=== PATIENT | male | born 1995 | race African-American/Black ===

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

== ENCOUNTER 2018-06-16 21:11 | Observation (INO) ==
[2018-06-16] MEDS ORDERED: Ketorolac Inj 30 MG/ML (IVP) Vial IV.PUSH ONE (21:46)
[2018-06-16] MEDS ORDERED: Sod Chloride 0.9% Inj 1,000 ML IV.SIG SCH (22:00)
[2018-06-16] MEDS: Morphine Inj 4 MG/ML Vial IV.PUSH PRN (22:12)
[2018-06-16] MEDS: Sod Chloride 0.9% Inj 1,000 ML IV.SIG SCH ×2 (22:13→22:45)
[2018-06-16 22:14] LABS: Hematocrit 25.2 % (39.0-51.0); Hemoglobin 8.5 gm/dL (13.0-17.0); Mean Corpuscular HGB Conc 33.9 % (32.0-36.0); Mean Corpuscular Hemoglobin 25.7 pg (27.0-34.0); Mean Platelet Volume 8.5 fL (7.0-11.0); Platelet Count 395 th/mm3 (150-450); Red Blood Count 3.31 mil/mm3 (4.50-5.90); Red Cell Distribution Width 23.3 % (11.6-17.2); White Blood Count 25.2 th/mm3 (4.0-11.0)
[2018-06-16 22:21] LABS: Chloride 107 meq/L (98-107); Potassium 3.7 meq/L (3.5-5.1); Sodium 140 meq/L (136-145)
[2018-06-16 22:25] LABS: Calcium 8.5 mg/dL (8.5-10.1)
--- NOTE | 2018-06-16 22:25 | ED ---
HPI General Chief complaint: Sickle Cell Stated complaint: Sickle cell pain Time Seen by Provider: 06/16/18 21:38 Source: patient and old records reviewed Mode of arrival: ambulatory Limitations: no limitations History of Present Illness Onset (ago): day(s) (06/13) Location: left, right, upper extremity and lower extremity Radiation: non-radiation Severity: severe Severity scale (1-10): 10 Quality: aching Pain Consistency: constant Relieving factors: other (Percocet) Exacerbating factors: none Associated symptoms: Reports denies other symptoms; Denies chest pain and fever/ chills Treatments prior to arrival: Reports other (Percocet until he ran out of it. He has been taking Tylenol since then.) Related Data Previous Rx's Medication Instructions Recorded oxycodone-acetaminophen [Percocet] 1 tab PO Q4-6H PRN #15 tab 06/13/18 Allergies Allergy/AdvReac Type Severity Reaction Status Date / Time No Known Allergies Allergy Verified 06/16/18 21:13 Review of Systems ROS: all other systems reviewed are negative [facility] Medical History Medical History Sickle cell anemia (Acute) Social History Social History Substance History: No History of Abuse Second Hand Smoke Exposure: No Smoking Status: Never smoker How Often Do You Have a Drink Containing Alcohol: Never Recent Travel in [facility] within the Last 8 Weeks: No Recent Out of Country Travel within the Last 8 Weeks: No Immunization History Tetanus Immunization: Unsure Exam Const General: cooperative, healthy appearing, comfortable, no acute distress and well developed Orientation: alert, awake and oriented x3 HENMT Head: normal to inspection, normocephalic and atraumatic Eyes Alignment and Position: alignment normal and position abnormal Conjunctivae: conjunctivae normal Sclera: scleral abnormality (Icterus) bilaterally EOM: EOM intact bilaterally Neck Neck: normal visual inspection and full ROM Chest Chest: normal inspection of the chest Resp Effort & Inspection: normal respiratory effort and able to speak in complete sentences Auscultation: clear to auscultation bilaterally Cardio Rate: tachycardic Rhythm: regular rhythm GI Inspection: normal to inspection Palpation: soft Back/Spine/Pelvis Cervical Spine: cervical ROM normal Thoracic/Lumbar Spine: thoraco-lumbar ROM normal Skin General: no rashes or lesions noted, turgor normal and dry skin Neuro General: alert, awake, oriented x3, moves all extremities and CN's II-XI intact bilaterally Extrem General: normal to inspection and full ROM Psych Appearance: grossly normal Mental Status: mental status grossly normal Speech and Movement: speech and movement normal Mood: congruent mood Affect: normal affect Attitude: cooperative Thought Process: normal Thought Content: normal Judgment: judgment good Course Initial Documented Vital Signs Temperature 98.2 F 06/16/18 21:13 Pulse Rate 108 H 06/16/18 21:13 Respiratory Rate 18 06/16/18 21:13 Blood Pressure 131/74 06/16/18 21:13 Pulse Oximetry 97 06/16/18 21:13 Last Documented Vital Signs Temperature 100.9 F H 06/17/18 08:00 Pulse Rate 99 H 06/17/18 08:00 Respiratory Rate 18 06/17/18 10:57 Blood Pressure 138/81 06/17/18 08:00 Pulse Oximetry 99 06/17/18 08:00 Sign Out Sign Out Data: Patient Sign Out occurred on 06/17/18 at 00:56. Patient's care was discussed, and care was transferred from Gabrielle Diaz to Yazmin Hendricks MD. Sign Out Comment: This patient is being signed out at 11 PM pending his reticulocyte count. He needs to be admitted to the hospital for sickle cell crisis. This is his third visit since 06/13 for same. Last updated by Gabrielle Diaz at 06/16/18 23:05 Post-Handoff Eval: Accepted in sign out Medical Decision Making MDM Narrative Medical decision making narrative: This is a 22-year-old patient with sickle cell anemia who presents with sickle cell crisis. This is his third visit since 06/13. I recommended admission. He initially agreed but now states that he is not going to stay for admission. I have ordered 2 L of fluid and IV morphine for him. He will need to sign out AMA. 11 PM The patient now states that he will be admitted if I am not going to give him a prescription for narcotics. Patient accepted in sign out Patient agrees to observation admission as pain is not adequately controlled as an outpatient. Reticulocyte elevated. Patient's case discussed with [facility] medicine service for sickle cell vaso-occlusive crisis. Medical Screen Exam Complete: Yes Emergency Medical Condition: Yes Differential Diagnosis Differential Diagnosis: My differential diagnosis of sickle cell disease includes but is not limited to vaso-occlusive crisis, acute chest syndrome, occult infection, electrolyte disturbance, drug-seeking behavior. Medical Records Medical records reviewed: Yes I reviewed the patient's medical records. She was seen here on 06/13 for same. Admission was recommended but refused. He was seen here again last night. Admission was again recommended but refused. He was given a prescription for 15 Percocet on 06/13. Lab Data Lab results reviewed: Yes I reviewed the patient's lab results. Result diagrams: 06/17/18 06:30 06/17/18 06:30 Lab Results 06/16/18 06/16/18 06/17/18 Range/Units 22:00 22:00 06:30 CBC w Diff Slide review pending Slide review pending WBC 25.2 H 25.3 H (4.0-11.0) th/mm3 RBC 3.31 L 3.30 L (4.50-5.90) mil/mm3 Hgb 8.5 L 8.3 L (13.0-17.0) gm/dL Hct 25.2 L 25.3 L (39.0-51.0) % MCV 76.0 L 76.8 L (80.0-100.0) fL MCH 25.7 L 25.2 L (27.0-34.0) pg MCHC 33.9 32.8 (32.0-36.0) % RDW 23.3 H 23.0 H (11.6-17.2) % Plt Count 395 405 (150-450) th/mm3 MPV 8.5 8.3 (7.0-11.0) fL Neut % (Auto) 64.9 (16.0-70.0) % Lymph % (Auto) 13.3 (9.0-44.0) % Mercer % (Auto) 14.1 H (0.0-8.0) % Eos % (Auto) 4.0 (0.0-4.0) % Baso % (Auto) 3.7 H (0.0-2.0) % Neut # (Auto) 16.4 H (1.8-7.7) th/mm3 Lymph # (Auto) 3.4 (1.0-4.8) th/mm3 Mercer # (Auto) 3.6 H (0.0-0.9) th/mm3 Eos # (Auto) 1.0 H (0.0-0.4) th/mm3 Baso # (Auto) 0.9 H (0.0-0.2) th/mm3 WBC Differential Manual diff final . Diff Scan Auto diff confirmed Seg Neuts % (Manual) 84 H (16-70) % Band Neuts % (Manual) 2 (0-6) % Lymphocytes % (Manual) 8 L (9-44) % Monocytes % (Manual) 4 (0-8) % Eosinophils % (Manual) 2 (0-4) % Abs Neuts (Manual) 21.7 H (1.8-7.7) th/mm3 Differential Comment . . Platelet Estimate Normal Normal (Normal) Platelet Morphology Normal Normal (Normal) Sickle Cells 2+ H (None) Target Cells 2+ H (None) Ovalocytes 1+ H (None) Retic Count 11.6 H (0.4-3.0) % Absolute Retic 397.9 H (20.0-150.0) mil/L Sodium 140 (136-145) meq/L Potassium 3.7 (3.5-5.1) meq/L Chloride 107 (98-107) meq/L Carbon Dioxide 24.7 (21.0-32.0) meq/L Anion Gap 8 (5-15) meq/L BUN 11 (7-18) mg/dL Creatinine 0.77 (0.60-1.30) mg/dL Estimated GFR Greater than 89 (>89) mL/min Random Glucose 120 H (74-106) mg/dL Calcium 8.5 (8.5-10.1) mg/dL Total Bilirubin 2.1 H (0.2-1.0) mg/dL Direct Bilirubin (0.0-0.2) mg/dL Indirect Bilirubin (0.0-0.8) mg/dL AST 41 H (15-39) U/L ALT 14 (9-52) U/L Alkaline Phosphatase 119 H (45-117) U/L Lactate Dehydrogenase (87-241) U/L Total Protein 8.6 H (6.4-8.2) g/dL Albumin 3.7 (3.4-5.0) g/dL 06/17/18 06/17/18 06/17/18 Range/Units 06:30 06:30 06:30 CBC w Diff WBC (4.0-11.0) th/mm3 RBC (4.50-5.90) mil/mm3 Hgb (13.0-17.0) gm/dL Hct (39.0-51.0) % MCV (80.0-100.0) fL MCH (27.0-34.0) pg MCHC (32.0-36.0) % RDW (11.6-17.2) % Plt Count (150-450) th/mm3 MPV (7.0-11.0) fL Neut % (Auto) (16.0-70.0) % Lymph % (Auto) (9.0-44.0) % Mercer % (Auto) (0.0-8.0) % Eos % (Auto) (0.0-4.0) % Baso % (Auto) (0.0-2.0) % Neut # (Auto) (1.8-7.7) th/mm3 Lymph # (Auto) (1.0-4.8) th/mm3 Mercer # (Auto) (0.0-0.9) th/mm3 Eos # (Auto) (0.0-0.4) th/mm3 Baso # (Auto) (0.0-0.2) th/mm3 WBC Differential Diff Scan Seg Neuts % (Manual) (16-70) % Band Neuts % (Manual) (0-6) % Lymphocytes % (Manual) (9-44) % Monocytes % (Manual) (0-8) % Eosinophils % (Manual) (0-4) % Abs Neuts (Manual) (1.8-7.7) th/mm3 Differential Comment Platelet Estimate (Normal) Platelet Morphology (Normal) Sickle Cells (None) Target Cells (None) Ovalocytes (None) Retic Count 10.6 H (0.4-3.0) % Absolute Retic 347.3 H (20.0-150.0) mil/L Sodium 137 (136-145) meq/L Potassium 3.8 (3.5-5.1) meq/L Chloride 106 (98-107) meq/L Carbon Dioxide 22.5 (21.0-32.0) meq/L Anion Gap 9 (5-15) meq/L BUN 9 (7-18) mg/dL Creatinine 0.72 (0.60-1.30) mg/dL Estimated GFR Greater than 89 (>89) mL/min Random Glucose 96 (74-106) mg/dL Calcium 8.4 L (8.5-10.1) mg/dL Total Bilirubin (0.2-1.0) mg/dL Direct Bilirubin (0.0-0.2) mg/dL Indirect Bilirubin (0.0-0.8) mg/dL AST (15-39) U/L ALT (9-52) U/L Alkaline Phosphatase (45-117) U/L Lactate Dehydrogenase 503 H (87-241) U/L Total Protein (6.4-8.2) g/dL Albumin (3.4-5.0) g/dL 06/17/18 Range/Units 06:30 CBC w Diff WBC (4.0-11.0) th/mm3 RBC (4.50-5.90) mil/mm3 Hgb (13.0-17.0) gm/dL Hct (39.0-51.0) % MCV (80.0-100.0) fL MCH (27.0-34.0) pg MCHC (32.0-36.0) % RDW (11.6-17.2) % Plt Count (150-450) th/mm3 MPV (7.0-11.0) fL Neut % (Auto) (16.0-70.0) % Lymph % (Auto) (9.0-44.0) % Mercer % (Auto) (0.0-8.0) % Eos % (Auto) (0.0-4.0) % Baso % (Auto) (0.0-2.0) % Neut # (Auto) (1.8-7.7) th/mm3 Lymph # (Auto) (1.0-4.8) th/mm3 Mercer # (Auto) (0.0-0.9) th/mm3 Eos # (Auto) (0.0-0.4) th/mm3 Baso # (Auto) (0.0-0.2) th/mm3 WBC Differential Diff Scan Seg Neuts % (Manual) (16-70) % Band Neuts % (Manual) (0-6) % Lymphocytes % (Manual) (9-44) % Monocytes % (Manual) (0-8) % Eosinophils % (Manual) (0-4) % Abs Neuts (Manual) (1.8-7.7) th/mm3 Differential Comment Platelet Estimate (Normal) Platelet Morphology (Normal) Sickle Cells (None) Target Cells (None) Ovalocytes (None) Retic Count (0.4-3.0) % Absolute Retic (20.0-150.0) mil/L Sodium (136-145) meq/L Potassium (3.5-5.1) meq/L Chloride (98-107) meq/L Carbon Dioxide (21.0-32.0) meq/L Anion Gap (5-15) meq/L BUN (7-18) mg/dL Creatinine (0.60-1.30) mg/dL Estimated GFR (>89) mL/min Random Glucose (74-106) mg/dL Calcium (8.5-10.1) mg/dL Total Bilirubin 1.7 H (0.2-1.0) mg/dL Direct Bilirubin 0.5 H (0.0-0.2) mg/dL Indirect Bilirubin 1.2 H (0.0-0.8) mg/dL AST 45 H (15-39) U/L ALT 14 (9-52) U/L Alkaline Phosphatase 114 (45-117) U/L Lactate Dehydrogenase (87-241) U/L Total Protein 8.1 (6.4-8.2) g/dL Albumin 3.4 (3.4-5.0) g/dL Discharge Plan Discharge Disposition Patient Disposition: Sign Out(ED Internal Use Only) Discharge Order Discharge Orders: ED Use Only Admit Order (Routine); Ordered 06/17/18 Ordered By: Yazmin Hendricks Discharge Details Diagnosis: Sickle cell anemia Physicians Team ED Provider: Yazmin Hendricks Primary Care Provider: Primary Care Carolyn Marcial Attending Provider: Pao Rogers Status ED Status: Left Department Discharge Information Discharge Date/Time: 06/17/18 01:15
[2018-06-16 22:26] LABS: Albumin 3.7 g/dL (3.4-5.0); Anion Gap 8 meq/L (5-15); Blood Urea Nitrogen 11 mg/dL (7-18); Carbon Dioxide 24.7 meq/L (21.0-32.0); Glucose,Random 120 mg/dL (74-106)
[2018-06-16 22:29] LABS: Alanine Aminotransferase 14 U/L (9-52); Aspartate Aminotransferase 41 U/L (15-39)
[2018-06-16 22:30] LABS: Eosinophils 2 % (0-4); Glomerular Filtration Rate Greater Than 89 mL/min (>89); Lymphocytes 8 % (9-44); Monocytes 4 % (0-8)
[2018-06-16 22:31] LABS: Ovalocytes 1+; Platelet Estimate Normal (Normal); Platelet Morphology Normal (Normal); Sickle Cells 2+; Target Cells 2+; Total Protein 8.6 g/dL (6.4-8.2)
[2018-06-16 22:32] LABS: Alkaline Phosphatase 119 U/L (45-117)
[2018-06-16 23:42] LABS: Reticulocyte Percent 11.6 % (0.4-3.0)
[2018-06-17] MEDS ORDERED: Morphine Inj 4 MG/ML Vial IV.PUSH PRN ×2 (00:21→05:26)
[2018-06-17] MEDS ORDERED: Bisacodyl 10 MG Supp RECTAL PRN (00:22)
[2018-06-17] MEDS ORDERED: Acetaminophen 325 MG Tablet PO PRN (00:22)
[2018-06-17] MEDS: Sod Chloride 0.9% Inj 1,000 ML IV.CONT SCH ×2 (01:29→10:58)
[2018-06-17] MEDS: Morphine Inj 4 MG/ML Vial IV.PUSH PRN ×2 (02:58→04:04)
[2018-06-17] MEDS ORDERED: HYDROmorphone PF Inj 2 MG/ML Vial IV.PUSH ONE (05:24)
[2018-06-17 06:56] LABS: Baso # (Auto) 0.9 th/mm3 (0.0-0.2); Baso % (Auto) 3.7 % (0.0-2.0); Hematocrit 25.3 % (39.0-51.0); Hemoglobin 8.3 gm/dL (13.0-17.0); Lymph # (Auto) 3.4 th/mm3 (1.0-4.8); Lymph % (Auto) 13.3 % (9.0-44.0); Mean Corpuscular HGB Conc 32.8 % (32.0-36.0); Mean Corpuscular Hemoglobin 25.2 pg (27.0-34.0); Mean Corpuscular Volume 76.8 fL (80.0-100.0); Mean Platelet Volume 8.3 fL (7.0-11.0); Mono # (Auto) 3.6 th/mm3 (0.0-0.9); Mono % (Auto) 14.1 % (0.0-8.0); Neut # (Auto) 16.4 th/mm3 (1.8-7.7); Neut % (Auto) 64.9 % (16.0-70.0); Platelet Count 405 th/mm3 (150-450); White Blood Count 25.3 th/mm3 (4.0-11.0)
[2018-06-17] MEDS: oxyCODONE/Acetaminophen 10/325 Tablet PO PRN ×4 (06:59→19:30)
[2018-06-17 07:00] LABS: Chloride 106 meq/L (98-107); Potassium 3.8 meq/L (3.5-5.1); Sodium 137 meq/L (136-145)
[2018-06-17 07:03] LABS: Anion Gap 9 meq/L (5-15); Calcium 8.4 mg/dL (8.5-10.1); Carbon Dioxide 22.5 meq/L (21.0-32.0); Glucose,Random 96 mg/dL (74-106)
[2018-06-17 07:04] LABS: Blood Urea Nitrogen 9 mg/dL (7-18)
[2018-06-17 07:07] LABS: Glomerular Filtration Rate Greater Than 89 mL/min (>89)
[2018-06-17 07:26] LABS: Platelet Estimate Normal (Normal); Platelet Morphology Normal (Normal)
[2018-06-17 07:40] LABS: Albumin 3.4 g/dL (3.4-5.0)
[2018-06-17 07:45] LABS: Total Protein 8.1 g/dL (6.4-8.2)
[2018-06-17] MEDS ORDERED: Senna/Docusate Sodium 8.6/50 MG Tablet PO SCH (09:00)
[2018-06-17 09:58] LABS: Reticulocyte Percent 10.6 % (0.4-3.0)
[2018-06-17] MEDS ORDERED: Folic Acid 1 MG Tablet PO SCH (11:45)
--- NOTE | 2018-06-17 11:48 | P.HPIM ---
History of Present Illness Primary Care Physician: No Primary Care Physician Chief Complaint: Leg and knee pain History of Present Illness: 22-year-old male with known history of sickle generalized pain mainly in his legs and knees. Patient has been to the emergency department 3 times in the last 4 days because of intractable pain. Workup was done which did indicate patient having sickle cell crisis at this time. The patient does not have a local sales teacher. Patient states that when he was in [place] he was treated with folic acid and penicillin. He does live in the area, does not have a primary medical doctor at this time. He states that he lost his insurance and prior medical doctor when he turned 21. He has never been evaluated by sales teacher in the area. By electronic medical records it would appears that the patient has come to the hospital approximately 5 times in the last 3 years. Apparently the last 3 times he was trying to get relief with medications prescribed by the ER physician but which is unsuccessful in doing so. It was recommended by ER physician the patient be admitted for further evaluation and management. Patient denies any headache, visual disturbances, chest pain, shortness of breath, hemoptysis, abdominal pain , nausea, vomiting. Review of Systems Review of Systems: all other systems reviewed are negative Musculoskeletal: Reports arthralgias PMFSH Medical History Medical History Sickle cell anemia (Acute) Family History Family History Mother History of sickle cell trait Father History of sickle cell trait Social History Social History Substance History: No History of Abuse Second Hand Smoke Exposure: No Smoking Status: Never smoker How Often Do You Have a Drink Containing Alcohol: Never Recent Travel in [place] within the Last 8 Weeks: No Recent Out of Country Travel within the Last 8 Weeks: No Immunization History Tetanus Immunization: Unsure Medications and Allergies Allergies Allergy/AdvReac Type Severity Reaction Status Date / Time No Known Allergies Allergy Verified 06/16/18 21:13 Active Medications: Active Medications Acetaminophen (Tylenol) 650 mg PO Q4H PRN PRN Reason: Temp > 100.4 Al Hydroxide/Mg Hydroxide (Milk Of Magnesia Liq) 30 ml PO Q12H PRN PRN Reason: Mild Constipation Bisacodyl (Dulcolax Supp) 10 mg RECTAL DAILY PRN PRN Reason: SEVERE CONSITIPATION Folic Acid (Folic Acid) 1 mg PO DAILY [facility] Sodium Chloride (Ns Inj) 1,000 mls @ 150 mls/hr IV.CONT .Q6H40M [facility] Last Admin: 06/17/18 10:58 Dose: 150 mls/hr Lactulose (Lactulose Liq) 30 ml PO DAILY PRN PRN Reason: SEVERE CONSITIPATION Morphine Sulfate (Morphine Inj) 4 mg IV.PUSH Q4H PRN PRN Reason: BREAKTHROUGH PAIN Last Admin: 06/17/18 10:05 Dose: 4 mg Ondansetron HCl (Zofran Inj) 4 mg IV.PUSH Q6H PRN PRN Reason: NAUSEA OR VOMITING Oxycodone/Acetaminophen (Percocet 10/325 Mg) 1 tab PO Q4H PRN PRN Reason: Acute Pain Last Admin: 06/17/18 11:18 Dose: 1 tab Senna/Docusate Sodium (Leah-Colace) 1 tab PO BID [facility] Last Admin: 06/17/18 08:54 Dose: Not Given Sennosides (Senokot) 17.2 mg PO Q12H PRN PRN Reason: Moderate Constipation Sodium Chloride (Ns Flush) 2 ml IV.FLUSH BID [facility] Last Admin: 06/17/18 08:53 Dose: Not Given Sodium Chloride (Ns Flush) 2 ml IV.FLUSH PRN PRN PRN Reason: FLUSH AFTER USING IV ACCESS Last Admin: 06/17/18 05:44 Dose: 2 ml Physical Exam Vital signs: Last Vital Signs Temp 100.9 F H 06/17/18 08:00 Pulse 99 H 06/17/18 08:00 Resp 18 06/17/18 10:57 BP 138/81 06/17/18 08:00 Pulse Ox 99 06/17/18 08:00 Intake & Output 06/15/18 06/16/18 06/17/18 06/18/18 06:59 06:59 06:59 06:59 Intake Total 3090 / 3090 1000 / 1000 Output Total 1350 / 1350 Balance 1740 / 1740 1000 / 1000 Weight 63.9 kg Narrative: GENERAL: Well-developed, well-nourished, in no acute distress. alert and orientated HEENT: Head is normocephalic without any lesions or masses noted. Facial features are symmetric. Eyes: Pupils equal round reactive to light. Extraocular muscles are intact. Conjunctivae were clear. Oropharyngeal: Pharynx without any erythema edema. Tongue is midline without deviation. Buccal mucosa is moist without any masses or lesions NECK: Supple without any masses. Trachea midline no deviation. No JVD, no bruits are appreciated CARDIAC: Regular rhythm, regular rate. S1/S2 are heard. No murmurs gallops or rubs. LUNGS: Clear to auscultation bilaterally. No wheeze, rhonchi or rales. No use of accessory muscles on inspiration or expiration. ABDOMEN: Soft, nontender. Nondistended. Bowel sounds heard in all 4 quadrants. No organomegaly or masses. Negative rebound, negative guarding EXTREMITIES: No edema, pulses are equal bilaterally. No cyanosis or clubbing NEUROLOGY: Mood and affect appear appropriate. Cranial nerves II through XII grossly intact. Muscle strength 5/5 in upper and lower extremities bilaterally. Deep tendon reflexes are 2+ in upper and lower extremities bilaterally. MUSCULOSKELETAL: Patient has no obvious tenderness noted in upper extremities, chest, abdomen. However when reaching to palpate his lower extremities he started groaning in pain prior to me touching his skin. Results Labs CBC & Chem 7: 06/17/18 06:30 06/17/18 06:30 Caprini VTE Risk Assessment Caprini VTE Risk Assessment: Moderate/High Risk (score >= 2) Caprini Risk Assessment Model: Point Value = 1 Point Value = 2 Point Value = 3 Point Value = 5 Age 41-60 Minor surgery BMI > 25 kg/m2 Swollen legs Varicose veins or History of unexplained or recurrent spontaneous Oral contraceptives or hormone replacement Sepsis (< 1 month) Serious lung disease, including pneumonia (< 1 month) Abnormal pulmonary function Acute myocardial infarction Congestive heart failure (< 1 month) History of inflammatory bowel disease Medical patient at bed rest Age 61-74 Arthroscopic surgery Major open surgery (> 45 min) Laparoscopic surgery (> 45 min) Malignancy Confined to bed (> 72 hours) Immobilizing plaster cast Central venous access Age >= 75 History of VTE Family history of VTE Factor V Leiden Prothrombin [id number] Lupus anticoagulant Anticardiolipin antibodies Elevated serum homocysteine Heparin-induced thrombocytopenia Other congenital or acquired thrombophilia Stroke (< 1 month) Elective arthroplasty Hip, pelvis, or leg fracture Acute spinal cord injury (< 1 month) Prophylaxis Regimen: Total Risk Factor Score Risk Level Prophylaxis Regimen 0-1 Low Early ambulation 2 Moderate Order ONE of the following: *Sequential Compression Device (SCD) *Heparin 5000 units SQ BID 3-4 Higher Order ONE of the following medications: *Heparin 5000 units SQ TID *Enoxaparin/Lovenox 40 mg SQ daily (WT < 150 kg, CrCl > 30 mL/min) *Enoxaparin/Lovenox 30 mg SQ daily (WT < 150 kg, CrCl > 10-29 mL/min) *Enoxaparin/Lovenox 30 mg SQ BID (WT < 150 kg, CrCl > 30 mL/min) AND/OR *Sequential Compression Device (SCD) 5 or more Highest Order ONE of the following medications: *Heparin 5000 units SQ TID (Preferred with Epidurals) *Enoxaparin/Lovenox 40 mg SQ daily (WT < 150 kg, CrCl > 30 mL/min) *Enoxaparin/Lovenox 30 mg SQ daily (WT < 150 kg, CrCl > 10-29 mL/min) *Enoxaparin/Lovenox 30 mg SQ BID (WT < 150 kg, CrCl > 30 mL/min) AND *Sequential Compression Device (SCD) Assessment and Plan Plan Sickle cell crisis -Patient does not have a local sales teacher, not taking any prophylaxis medications -We will continue with IV hydration -Start folic acid 1 mg p.o. daily -Continue pain control -Patient does have elevation in retic count, LDH, total bilirubin, indirect bilirubin. -Obtain hemoglobin electrophoresis -Continue to follow LFTs, retic count, LDH -Consulted hematology for evaluation, medication recommendations, outpatient follow-up DVT prevention -Subcutaneous heparin H&P: Quality VTE Deep Vein Thrombosis/Pulmonary Embolism Present on Admission: No
[2018-06-17] MEDS ORDERED: Heparin - SQ 10,000 UNITS/ML Vial SQ SCH (12:00)
--- NOTE | 2018-06-17 20:58 | MB ---
cc: Dolores Herndon MD, Matthew J PA DATE: 06/17/2018 DATE OF SERVICE: 06/17/2018 REFERRING PROVIDER: SAUL Garcia CHIEF COMPLAINT: SAUL Garcia requests a consultation for Mr. Sifuentes regarding sickle cell disease and acute vasoocclusive pain crises. HISTORY OF PRESENT ILLNESS: Mr. Sifuentes is a 22-year-old young man from [facility]. He is working on his associate's degree at [employer]. He is diagnosed with sickle cell disease by pot washer in [facility]. He is unaware of his type of sickle cell. He does not have a local physician. Does not have a history of deep vein thromboses or acute chest syndrome. He has a mother who sounds like she has crises, although she has trait. His father has a trait. He has another brother with trait from same mother different father. He has had multiple ER visits for his sickle cell vasoocclusive pain symptoms. He tries to manage his symptoms at home. It is not clear, but ran out of pain medication. [id number] database was checked and his last pain prescription was filled on 06/13/2018. He is feeling better with hydration. His hemoglobin has remained stable. He has some low-grade temperature. He is mildly diaphoretic. He denies any urinary complaints. He denies any illness, acute precipitating factor. He has no sick contacts. A friend is sitting at bedside. PAST MEDICAL HISTORY: Significant for sickle cell disease. FAMILY HISTORY: Mother has sickle cell trait, but has crises, query sickle cell. Father has history of trait. SOCIAL HISTORY: Denies any tobacco, alcohol or illicit drug use. He is a student. ALLERGIES: NO KNOWN DRUG ALLERGIES. CURRENT MEDICATIONS: Include: 1. Tylenol. 2. Dulcolax. 3. Folic acid on fractionated heparin 4. Morphine p.r.n. 5. Percocet. PHYSICAL EXAMINATION: VITAL SIGNS: Temperature 99.8, heart rate 91, respiratory rate 18, blood pressure 139/83, saturation 100%. Mr. Sifuentes is a well-developed, well-nourished young man, in no acute distress. He feels better. HEENT: Pupils are round, reactive to light and accommodation. Sclerae is icteric. Oropharynx is clear. NECK: Supple. LUNGS: Clear to auscultation. CARDIOVASCULAR: Reveals tachycardia. GASTROINTESTINAL: Benign. No splenomegaly appreciated. LOWER EXTREMITIES: No edema. NEUROLOGIC: Nonfocal. LABORATORY DATA: Significant for a white blood cell count of 25, hemoglobin 8.3, platelet count of 405. Chemistry: BUN and creatinine are normal. Bilirubin is trending down. LDH is 503. ASSESSMENT AND PLAN: Mr. Sifuentes is a 22-year-old young man from [facility], student at [employer]. He is admitted with a sickle cell vasoocclusive pain crises. He is encouraged to continue his folic acid. It can occur with Maxi Narayanan to start hydroxyurea. We discussed the risks and benefit of hydroxyurea. He is agreeable to the above. He will need further evaluation as to the type of sickle cell disease. 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 He maintains a relatively good hemoglobin. He may receive a sickle cell gene from father and thalassemia from mother. It is interesting that mother supposedly has trait, but has acute vasoocclusive pain symptoms. They are commonly precipitated with childbirth. He is encouraged to establish himself with [facility] [place]. He will be given contact information to make appointment to a new patient referral. He was agreeable to that. Given that it is [facility], he would like to go home to his family. He feels that he is able to manage his pain symptoms at home. He is taking only oral medication for the last 12 hours. We will discuss this with the primary team. Okay for discharge from hematology/oncology standpoint. He is going to be given information on followup. New patient referral will contact him as well. MD SAMUEL Morillo/eric , 06:34 PM , 06:46 PM
[2018-06-26 23:52] LABS: HGB A2 Reference 5.5 % (1.8-3.5); HGB E Reference ND (()); HGB F Reference 0 % (LESS THAN 2.0); MCVREF 75.9 fL (80.0-100.0)
== END 2018-06-17 20:12 | disposition home or self-care (01) ==
LOC: PHEDA 21:11 → PHED 21:11 → PHEDA 06-17 01:15 → PH3 06-17 01:19
PROVIDERS: ADMIT Hospitalist; ATTEND Hospitalist
CPT/HCPCS: 80048; 80053; 80076; 83020; 83021; 83615; 85014; 85018; 85025; 85041; 85044; 90761; 90774; 90775; 96361; 96372; 96374; 96375; 96376; 99285; C8952; G0378; J1170; J1644; J1885; J2270; J2405; J7030